=== PATIENT | female | born 1960 | race Caucasian/White ===

== ENCOUNTER 2020-07-26 12:27 | Emergency (ER) | payer OTHER ==
[2020-07-26] MEDS: Sodium Chloride 0.9% 1000 ML 1,000 ML IV STA (13:21)
[2020-07-26] MEDS ORDERED: Zofran 4 MG/2 ML VIAL ONE (13:21)
[2020-07-26] MEDS ORDERED: Sodium Chloride 0.9% 1000 ML 1,000 ML ONE (13:21)
[2020-07-26] MEDS: Zofran 4 MG/2 ML VIAL IV ONE (13:22)
[2020-07-26 13:28] LABS: BASOPHIL % 0.3 % (0.0-0.4); Basophil (Absolute #) 0.02 (0-0.4); Eosinophil % 0.5 % (0.00-5.0); Eosinophil (Absolute #) 0.03 (0-0.5); Hematocrit 42.1 % (35-47); Hemoglobin 13.4 gm/dl (12.0-16.0); Lymphocyte (Absolute #) 2.52 (1.0-4.6); Lymphocytes % 41.5 % (24.0-44.0); Mean Cell Volume 96.1 fl (78-100); Mean Corpuscular Hemoglobin 30.6 pg (26-32); Mean Corpuscular Hgb Concent. 31.8 g/dl (32-36); Mean Platelet Volume 10.1 fl (7.5-11.0); Monocytes % 6.6 % (0.0-12.0); Neutrophil % 51.1 % (36.0-66.0); Platelet Count 331 K/mm3 (150-450); Red Blood Count 4.38 M/mm3 (4.1-5.4); Red Cell Distribution Width 12.6 % (11.5-14.0); White Blood Count 6.1 K/mm3 (4.0-10.5)
[2020-07-26 13:37] LABS: ALBUMIN 4.8 g/dL (3.5-5.0); ANION GAP 17.4 MEQ/L (5-15); BILIRUBIN,TOTAL 0.6 mg/dL (0.2-1.3); Calcium 10.1 mg/dL (8.4-10.2); Creatinine 1 1.06 mg/dL (0.52-1.04); EST GLOMERULAR FILTRATION RATE 55.8 ML/MIN; Potassium 3.3 mmol/L (3.5-5.1); Total Protein 7.6 g/dL (6.3-8.2)
--- NOTE | 2020-07-26 13:55 | XRAY ---
Indication: Dizziness and dehydration. Comparison: None Portable chest hyperinflated and clear with incidental bilateral nipple shadows. Heart and mediastinal structures within normal limits. Bony thorax intact with mild degenerative changes. Impression: Nonacute chest.
[2020-07-26 13:57] LABS: Appearance SLIGHTLY CLOUDY (CLEAR); Bilirubin NEGATIVE (NEGATIVE); Blood NEGATIVE Ery/ul (0-5); Glucose NEGATIVE (NEGATIVE); Hyaline Casts 26-50 /LPF (0-2); Ketones TRACE (NEGATIVE); Leukocyte Esterase NEGATIVE (NEGATIVE); Mucus MANY /HPF (NEGATIVE); Nitrite NEGATIVE (NEGATIVE); Protein,Urine Dip NEGATIVE (Negative); RBC 0-2 /HPF (0-2); Specific Gravity 1.019 (1.005-1.025); Urobilinogen 2 mg/dL (0-1)
[2020-07-26 14:12] VITALS: O2SAT 98
--- NOTE | 2020-07-26 14:57 | ERPHSYRPT ---
- History of Present Illness Time Seen by Provider: 07/26/20 12:36 Source: patient Exam Limitations: no limitations Patient Subjective Stated Complaint: " I was working out in the [employer] and I got really hot, lightheaded, and dizzy. I started to puke a lot and I felt like I was going to pass out". Triage Nursing Assessment: Pt presents to ER with complaints of vomiting, dizziness, and lightheadedness. Pt presents covered in vomit and appears lethargic. Pt is warm to touch, diaphoretic, and pale in appearance. Pt belives she overheated while working in [employer] this morning. Pt is alert and oriented, appears weak. Lungs clear but states is a little short of breath. Respiration unlabored. States felt as if she could of passed out but denies LOC. Abdomen is soft and nontender. Denies any pain. Physician History: 60 years old fairly healthy female presented in the ER with near syncopal episode. Patient reports she was working out in the [employer] for almost 3- 1/2 hours in the hot sun, all of a sudden she started to feel weak and tired all the work, came to her car and started to feel dizzy lightheaded and feeling as if she was going to pass out. She did not pass out. She then got nauseated and vomited few times. She cooled down in the car air-conditioning and started to feel better. Denies any chest pain palpitations or shortness of breath but did feel dizzy and lightheaded with spinning sensation for a few minutes. Denies any focal numbness tingling or weakness but generalized weakness all over. Denies any abdominal pain and her nausea is improving. Timing/Duration: hour(s) (1), resolved prior to arrival, sudden, improved Severity: moderate Modifying Factors: Improves With: other Associated Symptoms: nausea, vomiting, headaches, weakness, No abdominal pain, No syncope Allergies/Adverse Reactions: No Known Drug Allergies Allergy (Verified 07/26/20 12:33) Hx Tetanus, Diphtheria Vaccination/Date Given: Yes Hx Influenza Vaccination/Date Given: Yes Hx Pneumococcal Vaccination/Date Given: Yes Immunizations Up to Date: Yes Travel Risk - International Travel Have you traveled outside of the country in past 3 weeks: No - Coronavirus Screening Are you exhibiting any of the following symptoms?: No Close contact with a COVID-19 positive Pt in past 14-21 Days: No - Vaccine Status Have you recieved a Covid-19 vaccination: Yes [employer]: [employer] - Review of Systems Constitutional: Fatigue, Weakness Eyes: No Symptoms Ears, Nose, & Throat: No Symptoms Respiratory: No Symptoms Cardiac: No Symptoms Abdominal/Gastrointestinal: Nausea, Vomiting Genitourinary Symptoms: No Symptoms Musculoskeletal: No Symptoms Skin: No Symptoms Neurological: Dizziness Endocrine: No Symptoms Hematologic/Lymphatic: No Symptoms Immunological/Allergic: No Symptoms - Past Medical History Pertinent Past Medical History: Yes Neurological History: Migraines ENT History: No Pertinent History Cardiac History: No Pertinent History Respiratory History: No Pertinent History Endocrine Medical History: No Pertinent History Musculoskeletal History: No Pertinent History GI Medical History: Polyps History: No Pertinent History Psycho-Social History: No Pertinent History Female Reproductive Disorders: No Pertinent History Other Medical History: hx polyps removed 4 years ago - Past Surgical History Past Surgical History: No Neuro Surgical History: No Pertinent History Cardiac: No Pertinent History Respiratory: No Pertinent History Gastrointestinal: No Pertinent History Genitourinary: No Pertinent History Musculoskeletal: No Pertinent History Female Surgical History: Other Other Surgical History: colonoscopy, D&C - Social History Smoking Status: Never smoker Exposure to second hand smoke: No Drug Use: none Patient Lives Alone: No - Female History Hx Now: No - Nursing Vital Signs Nursing Vital Signs: Initial Vital Signs Temperature 96.3 F 07/26/20 12:28 Pulse Rate 87 07/26/20 12:28 Respiratory Rate 18 07/26/20 12:28 Blood Pressure 131/76 07/26/20 12:28 O2 Sat by Pulse Oximetry 100 07/26/20 12:28 Pain Scale Pain Intensity 0 - Physical Exam General Appearance: no apparent distress, alert, anxiety Eye Exam: PERRL/EOMI, eyes nml inspection Ears, Nose, Throat Exam: normal ENT inspection, TMs normal, pharynx normal Neck Exam: normal inspection, non-tender, supple, full range of motion Respiratory Exam: normal breath sounds, lungs clear Cardiovascular Exam: regular rate/rhythm, normal heart sounds Gastrointestinal/Abdomen Exam: soft, normal bowel sounds, No tenderness Back Exam: normal inspection, normal range of motion Neurologic Exam: alert, oriented x 3, cooperative, 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 as tested, normal mood/affect, nml cerebellar function, nml station & gait, sensation nml, No motor deficits, No sensory deficit Skin Exam: normal color SpO2 Interpretation: normal SpO2: 98 O2 Delivery: Room Air - Course EKG Interpreted by Me: RATE ([id number]), Sinus Rhythm, NORMAL AXIS, NORMAL INTERVALS, Non-specific ST Changes Ordered Tests: Active Orders 24 hr Category Date Time Status EKG-ER Only STAT Care 07/26/20 13:15 Active IV Insertion STAT Care 07/26/20 13:15 Active Orthostatic Vital Signs STAT Care 07/26/20 13:16 Active CHEST 1 VIEW (PORTABLE) Stat Exams 07/26/20 13:16 Completed CBC W DIFF Stat Lab 07/26/20 12:30 Completed CMP Stat Lab 07/26/20 12:30 Completed LIPASE Stat Lab 07/26/20 12:30 Completed TROPONIN Q3H Lab 07/26/20 12:30 Completed TROPONIN Q3H Lab 07/26/20 16:30 Ordered TROPONIN Q3H Lab 07/26/20 19:30 Ordered TROPONIN Q3H Lab 07/26/20 22:30 Ordered TROPONIN Q3H Lab 07/27/20 01:30 Ordered UA W/RFX UR CULTURE Stat Lab 07/26/20 13:36 Completed Medication Summary Discontinued Medications Generic Name Dose Route Start Last Admin Trade Name Freq PRN Reason Stop Dose Admin Sodium Chloride 1,000 mls @ 999 mls/hr 07/26/20 13:15 07/26/20 14:22 Sodium Chloride 0.9% 1000 Ml IV 07/26/20 14:15 Infused .Q1H1M STA Infusion Sodium Chloride Confirm 07/26/20 13:21 Sodium Chloride 0.9% 1000 Ml Administered 07/26/20 13:22 Dose 1,000 mls @ ud .ROUTE .STK-MED ONE Ondansetron HCl 4 mg 07/26/20 13:15 07/26/20 13:22 Zofran 4 Mg/2 Ml Vial IV 07/26/20 13:16 4 mg STAT ONE Administration Ondansetron HCl Confirm 07/26/20 13:21 Zofran 4 Mg/2 Ml Vial Administered 07/26/20 13:22 Dose 4 mg .ROUTE .STK-MED ONE Lab/Rad Data: Laboratory Result Diagrams 07/26/20 12:30 07/26/20 12:30 Laboratory Results 07/26/20 07/26/20 07/26/20 Range/Units 13:36 12:30 12:30 WBC (4.0-10.5) K/mm3 RBC (4.1-5.4) M/mm3 Hgb (12.0-16.0) gm/dl Hct (35-47) % MCV (78-100) fl MCH (26-32) pg MCHC (32-36) g/dl RDW (11.5-14.0) % Plt Count (150-450) K/mm3 MPV (7.5-11.0) fl Gran % (36.0-66.0) % Eos # (Auto) (0-0.5) Absolute Lymphs (auto) (1.0-4.6) Absolute Monos (auto) (0.0-1.3) Lymphocytes % (24.0-44.0) % Monocytes % (0.0-12.0) % Eosinophils % (0.00-5.0) % Basophils % (0.0-0.4) % Absolute Granulocytes (1.4-6.9) Basophils # (0-0.4) Sodium 140 (137-145) mmol/L Potassium 3.3 L (3.5-5.1) mmol/L Chloride 103 (98-107) mmol/L Carbon Dioxide 23 (22-30) mmol/L Anion Gap 17.4 H (5-15) MEQ/L BUN 13 (7-17) mg/dL Creatinine 1.06 H (0.52-1.04) mg/dL Estimated GFR 55.8 ML/MIN Glucose 184 H (74-106) mg/dL Calcium 10.1 (8.4-10.2) mg/dL Total Bilirubin 0.60 (0.2-1.3) mg/dL AST 31 (14-36) U/L ALT 23 (0-35) U/L Alkaline Phosphatase 101 (38-126) U/L Troponin I < 0.012 (0.000-0.034) ng/mL Serum Total Protein 7.6 (6.3-8.2) g/dL Albumin 4.8 (3.5-5.0) g/dL Lipase 89 (23-300) U/L Urine Color YELLOW (YELLOW) Urine Appearance SLIGHTLY CLOUDY (CLEAR) Urine pH 5.0 (5-6) Ur Specific [place] 1.019 (1.005-1.025) Urine Protein NEGATIVE (Negative) Urine Ketones TRACE (NEGATIVE) Urine Blood NEGATIVE (0-5) [place]/ul Urine Nitrite NEGATIVE (NEGATIVE) Urine Bilirubin NEGATIVE (NEGATIVE) Urine Urobilinogen 2 (0-1) mg/dL Ur Leukocyte Esterase NEGATIVE (NEGATIVE) Urine WBC (Auto) 6-10 (0-5) /HPF Urine RBC (Auto) 0-2 (0-2) /HPF U Hyaline Cast (Auto) 26-50 (0-2) /LPF U Epithel Cells (Auto) NONE (FEW) /HPF Urine Bacteria (Auto) NONE (NEGATIVE) /HPF Urine Mucus (Auto) MANY (NEGATIVE) /HPF Urine Culture Reflexed NO (NO) Urine Glucose NEGATIVE (NEGATIVE) mg/dL 07/26/20 Range/Units 12:30 WBC 6.1 (4.0-10.5) K/mm3 RBC 4.38 (4.1-5.4) M/mm3 Hgb 13.4 (12.0-16.0) gm/dl Hct 42.1 (35-47) % MCV 96.1 (78-100) fl MCH 30.6 (26-32) pg MCHC 31.8 L (32-36) g/dl RDW 12.6 (11.5-14.0) % Plt Count 331 (150-450) K/mm3 MPV 10.1 (7.5-11.0) fl Gran % 51.1 (36.0-66.0) % Eos # (Auto) 0.03 (0-0.5) Absolute Lymphs (auto) 2.52 (1.0-4.6) Absolute Monos (auto) 0.40 (0.0-1.3) Lymphocytes % 41.5 (24.0-44.0) % Monocytes % 6.6 (0.0-12.0) % Eosinophils % 0.5 (0.00-5.0) % Basophils % 0.3 (0.0-0.4) % Absolute Granulocytes 3.10 (1.4-6.9) Basophils # 0.02 (0-0.4) Sodium (137-145) mmol/L Potassium (3.5-5.1) mmol/L Chloride (98-107) mmol/L Carbon Dioxide (22-30) mmol/L Anion Gap (5-15) MEQ/L BUN (7-17) mg/dL Creatinine (0.52-1.04) mg/dL Estimated GFR ML/MIN Glucose (74-106) mg/dL Calcium (8.4-10.2) mg/dL Total Bilirubin (0.2-1.3) mg/dL AST (14-36) U/L ALT (0-35) U/L Alkaline Phosphatase (38-126) U/L Troponin I (0.000-0.034) ng/mL Serum Total Protein (6.3-8.2) g/dL Albumin (3.5-5.0) g/dL Lipase (23-300) U/L Urine Color (YELLOW) Urine Appearance (CLEAR) Urine pH (5-6) Ur Specific [place] (1.005-1.025) Urine Protein (Negative) Urine Ketones (NEGATIVE) Urine Blood (0-5) [place]/ul Urine Nitrite (NEGATIVE) Urine Bilirubin (NEGATIVE) Urine Urobilinogen (0-1) mg/dL Ur Leukocyte Esterase (NEGATIVE) Urine WBC (Auto) (0-5) /HPF Urine RBC (Auto) (0-2) /HPF U Hyaline Cast (Auto) (0-2) /LPF U Epithel Cells (Auto) (FEW) /HPF Urine Bacteria (Auto) (NEGATIVE) /HPF Urine Mucus (Auto) (NEGATIVE) /HPF Urine Culture Reflexed (NO) Urine Glucose (NEGATIVE) mg/dL - Progress Progress: improved, re-examined Progress Note: 07/26/20 14:55 Patient has nonfocal neuro exam throughout stay in the ER. I believe patient has heat exhaustion related near syncopal episode. She is given fluid bolus, work-up consistent with mild dehydration and does have UTI which patient later on did admit to having some burning and increased frequency. She would be given Keflex for that. EKG normal sinus rhythm with no acute ischemic changes and negative troponin. Chest x-ray negative for any acute cardiopulmonary findings. I do not think patient needs CT head with and normal neuro exam. She is advised to increase hydration and outpatient follow-up. Discussed signs symptoms of worsening needing return to ER which she seemed understanding. Counseled pt/family regarding: lab results, diagnosis, need for follow-up, rad results - Departure Departure Disposition: Home Clinical Impression: Heat exhaustion Qualifiers: Encounter type: initial encounter Qualified Code(s): T67.5XXA - Heat exhaustion, unspecified, initial encounter UTI (urinary tract infection) Qualifiers: Urinary tract infection type: site unspecified Hematuria presence: without hematuria Qualified Code(s): N39.0 - Urinary tract infection, site not specified Condition: Stable Critical Care Time: No Referrals: CITLALLI FUENTES [Primary Care Provider] - Follow Up with PCP/3 days Instructions: Nausea and Vomiting, Adult, Dehydration, Adult (DC) Additional Instructions: Use Zofran as needed for nausea and vomiting. Drink plenty of fluids. Follow- up with your primary care physician for reevaluation. Stay in a cool environment. [place] being in excessive heat. Return to ER for any worsening. Prescriptions: Ondansetron ODT 4 MG [Zofran Odt 4 mg] 4 mg PO Q6H PRN PRN #10 tab.rapdis PRN Reason: Vomiting Cephalexin Mh 500 mg [Keflex 500 mg] 500 mg PO TID #21 capsule
[2020-07-26 14:59] VITALS: BP 127/66; PULSE 83
== END 2020-07-26 15:15 | disposition home or self-care (01) ==
LOC: ED 12:27
DX: T67.5XXA Heat exhaustion, unspecified, initial encounter (principal); N39.0 Urinary tract infection, site not specified; R53.1 Weakness; R11.2 Nausea with vomiting, unspecified; R42 Dizziness and giddiness
CPT/HCPCS: 36000; 36415; 71045; 80053; 81001; 83690; 84484; 85025; 93005; 96360; 96374; 99284; J2405